=== PATIENT | female | born 1975 | race Caucasian/White ===

== ENCOUNTER → 2019-01-04 20:07 | Outpatient (CLI) | payer MEDICAID | END | disposition home or self-care (01) | LOC: D.MAMMO 13:45 | PROVIDERS: ATTEND Family Medicine | DX: Z12.31 Encounter for screening mammogram for malignant neoplasm of breast (principal) ==

== ENCOUNTER 2019-02-20 07:58 | Outpatient (CLI) | payer MEDICAID | END 2019-02-20 08:30 | disposition home or self-care (01) | LOC: D.MAMMO 07:58 | PROVIDERS: ATTEND Family Medicine | DX: R92.8 Other abnormal and inconclusive findings on diagnostic imaging of breast (principal) ==